=== PATIENT | male | born 1950 | race African-American/Black ===

== ENCOUNTER 2023-04-26 19:10 | Emergency (ER) | payer MEDICARE, OTHER ==
[~2023-04-26] VITALS: Ht 182.9 cm; Wt 68.5 kg
[~2023-04-26 19:10] MED LIST: AMLO10TA80 MT; AMLO10TA80 PO; ATOR40TA70 PO; CYAN-50 PO; HYDR-4009 MT; HYDR-519 PO; METF-416 PO; METO-411 MT; METO-539 PO; MULT-1146 PO; QUET100T PO; VALS40TA4 PO; VITA100T3 PO
[2023-04-26 19:24] VITALS: BP 138/80; O2SAT 99
[2023-04-26 19:59] LABS: BASOPHILS % 0.2 % (0.0-2.0); EOSINOPHILS % 0.7 % (0.0-5.0); HEMATOCRIT. 40.8 % (42.0-52.0); HEMOGLOBIN. 13.6 g/dL (14.0-18.0); LYMPHOCYTES % 7.8 % (20.0-50.0); MEAN CORPUSCULAR HGB CONC 33.3 g/dL (31.0-37.0); MEAN PLATELET VOLUME 7.8 fl (7.4-10.4); MONOCYTES % 5.7 % (2.0-8.0); NEUTROPHILS % 85.6 % (40.0-76.0); PLATELET 215 x1000/uL (130-400); RED BLOOD CELL COUNT 4.53 mill/uL (4.7-6.1); RED CELL DISTRIBUTION WIDTH 12.6 % (11.6-14.6); WHITE BLOOD COUNT 13.4 x1000/uL (4.5-11.0)
[2023-04-26 20:08] LABS: CHLORIDE 109 mEq/L (98-107); INDEX HEMOLYSI 1 (1-3); INDEX ICTERIC 1 (1-4); INDEX LIPEMIC 1 (1-3); POTASSIUM 3.7 mEq/L (3.5-5.1); SODIUM 138 mEq/L (136-145)
[2023-04-26 20:10] LABS: CLARITY URINE TURBID (CLEAR); COLOR URINE YELLOW (YELLOW); GLUCOSE URINE NEGATIVE (NEGATIVE); KETONES URINE NEGATIVE (NEGATIVE); LEUKOCYTE ESTERASE URINE NEGATIVE (NEGATIVE); NITRITE URINE NEGATIVE (NEGATIVE); OCCULT BLOOD URINE 2+ (NEGATIVE); PROTEIN URINE 1+ (NEGATIVE); SPECIFIC GRAVITY URINE 1.014 (1.005-1.030); UROBILINOGEN URINE 0.2 E.U./dL (0.2-1.0)
[2023-04-26 20:10] LABS: INR 1.1; PROTHROMBIN TIME 11.4 sec (9.6-11.0)
[2023-04-26 20:12] LABS: BACTERIA URINE NONE SEEN; RBC URINE 25-50 /hpf (0-2); SQUAMOUS EPITHELIAL CELL URINE NONE SEEN /lpf (RARE/1+); WBC URINE 0-2 /hpf (0-2); YEAST URINE NONE SEEN
[2023-04-26 20:17] LABS: ALANINE AMINOTRANSFERASE 16 IU/L (13-61); ALBUMIN 4.1 g/dL (3.4-5.0); ASPARTATE AMINOTRANSFERASE 16 IU/L (15-37); BILIRUBIN TOTAL 0.9 mg/dL (0.1-1.0); CALCIUM 9.2 mg/dL (8.5-10.1); CARBON DIOXIDE 22 mEq/L (21-32); CREATININE 1.4 mg/dL (0.6-1.3); GLUCOSE 232 mg/dL (70-105); UREA NITROGEN BLOOD 17 mg/dL (7-21)
[2023-04-26] MEDS ORDERED: TAMS-11 MT (22:08)
[2023-04-26] MEDS ORDERED: TOPUD MT (22:08)
[2023-04-26 22:46] VITALS: PULSE 80; RESP 16; TEMP 98.7
== END 2023-04-26 22:47 | disposition home or self-care (01) ==
LOC: ER 19:10
DX: R33.9 Retention of urine, unspecified (principal); E11.9 Type 2 diabetes mellitus without complications; F19.90 Other psychoactive substance use, unspecified, uncomplicated; G45.9 Transient cerebral ischemic attack, unspecified
CPT/HCPCS: 36415; 51702; 80053; 81003; 85025; 99284; A4315

== ENCOUNTER 2023-05-30 10:38 | Emergency (ER) | payer MEDICARE, OTHER ==
[~2023-05-30] VITALS: Ht 180.3 cm; Wt 62.0 kg
[~2023-05-30 10:38] MED LIST changes: +TAMS-11 MT; +TOPUD MT
[2023-05-30 10:48] VITALS: BP 172/91; PULSE 68; RESP 17; TEMP 98; O2SAT 98
[2023-05-30 12:20] LABS: CLARITY URINE CLEAR (CLEAR); COLOR URINE YELLOW (YELLOW)
[2023-05-30 12:21] LABS: GLUCOSE URINE NEGATIVE (NEGATIVE); KETONES URINE NEGATIVE (NEGATIVE); LEUKOCYTE ESTERASE URINE 2+ (NEGATIVE); NITRITE URINE NEGATIVE (NEGATIVE); OCCULT BLOOD URINE 3+ (NEGATIVE); PROTEIN URINE 1+ (NEGATIVE); UROBILINOGEN URINE 0.2 E.U./dL (0.2-1.0)
[2023-05-30 12:25] LABS: BACTERIA URINE FEW; SQUAMOUS EPITHELIAL CELL URINE NONE SEEN /lpf (RARE/1+); WBC URINE 15-25 /hpf (0-2); YEAST URINE NONE SEEN
[2023-05-30] MEDS ORDERED: CEPH500C2 MT (12:44)
== END 2023-05-30 13:55 | disposition home or self-care (01) ==
LOC: ER 13:46
DX: R33.9 Retention of urine, unspecified (principal)
CPT/HCPCS: 51702; 81003; 99283; 99284

== ENCOUNTER 2023-06-17 19:37 | Emergency (ER) | payer MEDICARE, OTHER ==
[~2023-06-17] VITALS: Ht 177.8 cm; Wt 65.0 kg
[~2023-06-17 19:37] MED LIST changes: +CEPH500C2 MT
[2023-06-17 19:54] VITALS: BP 170/100; PULSE 68; RESP 18; TEMP 98.4; O2SAT 98
== END 2023-06-17 21:00 | disposition left against medical advice (07) ==
LOC: ER 19:37
DX: Z46.6 Encounter for fitting and adjustment of urinary device (principal); Z53.21 Procedure and treatment not carried out due to patient leaving prior to being seen by health care provider
CPT/HCPCS: 99281